=== PATIENT | male | born 1940 | race Caucasian/White ===

== ENCOUNTER 2016-05-03 04:45 | Inpatient (IN) | payer MEDICARE ==
--- NOTE | 2016-05-02 11:43 | HP ---
DATE OF CLINIC: 04/29/2016 MINH ANGELES : 1940 PLANNED PROCEDURE: Left Total Shoulder Arthroplasty vs. Reverse Shoulder Arthroplasty with Biceps Tenodesis DATE OF SURGERY: May 03, 2016 SURGEON: Jarrell Cassidy M.D. PCP: Dr. Maikol Hickman HISTORY OF PRESENT ILLNESS Minh Angeles is a 76 year old male. * Medication list reviewed with patient allergy list reviewed with patient. The patient is a 76-year-old male who comes in today regarding persistent left shoulder pain due to osteoarthritis. At the last appointment the patient was diagnosed with a severe left shoulder osteoarthritis and he had a CT arthrogram to evaluate both the bony anatomy as well as status of his rotator cuff. He has a hx of a left open shoulder rotator cuff surgery. The patient has one kidney but his BUN/Cr have remained closed to 2. He has an established patient of Dr. Griffin who has had knee replacement as well is a right shoulder hemicap hemiarthroplasty (Tornier humeral head resurfacing implant). The patient has been happy with this despite subscap weakness. 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 He has had shoulder pain on this left side for quite some time. He had a failed open rotator cuff surgery back in 1988. He states that at that time he did not find they did not find a rotator cuff tear. The patient has severe right thumb CMC joint osteoarthritis. Dr. Griffin performed a total knee replacement prior to his rotator cuff repair. He states that he has not responded to steroids in the past and with like to talk about potentially moving forward with a left total shoulder replacement and would like to review CT scan images with me today. He is familiar with the surgery, but would like to see what the model looks like it would like to see how it is different than what he currently has. After discussion and review of treatment options, both non-operative and surgical, he has elected to proceed with surgery and presents today preoperatively. When I got to shake the patient's right hand he grimaces because of right thumb pain. He states that he has arthritis here. The patient has a number of different allergies. These include morphine, oxycodone and Vicodin. He does occasionally take Tylenol #3 to help with his pain and discomfort. He does not like taking Tylenol #3. He would like to know if he could take Darvocet. PAST MEDICAL/SURGICAL HISTORY Reported: Shoulder Arthroscopy Left shoulder Right shoulder. Surgical / Procedural: Surgical / procedural history 08/20/08 Left Open rc repair 08/20/08 by 02/25/2008 Right Shoulder hemiarthroplasty By 02/25/08 [facility] By and prior surgery. Total Right Knee Replacement 2004. ALLERGIES * Morphine * Oxycodone * Vicodin REVIEW OF SYSTEMS Systemic: No fever and no recent weight change. Cardiovascular: No chest pain or discomfort and no palpitations. Pulmonary: No cough and no wheezing. Gastrointestinal: No nausea, no vomiting, no abdominal pain, and no diarrhea. Hematologic: No easy bleeding (no blood clots). Neurological: No motor disturbances and no sensory disturbances. Skin: No skin lesions and no rash. PHYSICAL FINDINGS * Vitals taken 04/29/2016 10:28 am BP-Sitting R 121/77 mmHg 100 - 120/60 - 80 BP Cuff Size Regular Pulse Rate-Sitting 74 bpm 50 - 100 Pulse Rhythm Regular Temp-Oral 97.8 F 96 - 101 Height 71 in 64 - 74 Weight 231 lbs 121 - 205 Body Mass Index 32.2 kg/m2 Body Surface Area 2.24 m2 Pain Level 5 General Appearance: * Well developed. * In no acute distress. Eyes: General/bilateral: Extraocular Movements: * Normal. Lungs: * Clear to auscultation. * No wheezing was heard. * No rales/crackles were heard. Cardiovascular: Heart Rate and Rhythm: * Heart rate was normal. * Heart rhythm regular. Abdomen: Palpation: * Abdominal non-tender. Neurological: * Oriented to time, place, and person. Motor: * Dominant Hand = Right Hand. * Dominant Hand = Left Hand. I asked the patient to elevate both shoulders with his right and left shoulders. He continues to have limited motion on the left side compared to the right. On the right side he has a well-healed deltopectoral incision that is somewhat more vertical over the anterior aspect of the right shoulder. On the left side he has an anterior lateral incision from what I assume is a previous open shoulder surgery. Compared to the last appointment at the end of December he continues to have exquisite right-hand first thumb CMC pain. I was able to document Dr. Griffin's previous right shoulder surgeries. He did a right shoulder resurfacing hemiarthroplasty and a right carpal tunnel release with a Tornier 52 x 19 resurfacing humeral head performed on February 25, 2008, roughly 8 years ago. The patient had a second surgery on his right shoulder about six months later on, August 20, 2008 which was an open her of a right shoulder subscapularis tendon. This occurred when he was therapy. The patient would like to discuss with me possible options including a possible left total shoulder. PHYSICAL FINDINGS RIGHT EXTREMITY Hand well-healed carpal tunnel incision Tender to touch over the 1st CMC joint Shoulder General Appearance: right shoulder deltopectoral incision that is well-healed, no bruising, no swelling, no gross deformity AROM Forward Flexion: 150 degrees ABD: 110 degrees IR: Highest posterior anatomy reached with thumb: L4 PROM Forward Flexion: 160 degrees ABD: 120 degrees ER (0): 60 degrees Strength (0-5/5) Deltoid: 5/5 Triceps: 5/5 Biceps: 5/5 EPL,Finger Flexors,Finger Extensors,Wrist Flexors, Wrist Extensors,Intrinsics,Tactical/Mobile Watch Officer: 5/5 Rotator cuff Supraspinatus: 4/5 (negative empty can test) Infraspinatus: 5/5 (no pain with resisted external rotation) Subscapularis: 4/5 (POSITIVE belly press test) Rotator Cuff Exam Superior Escape: Negative Biceps Exam Bicipital Groove Tenderness: Negative Muscle Deformity (Angel Luis): Not present AC Exam AC Tenderness: Not tender AC Deformity: Negative Instability Generalized Laxity(thumb to forearm, hyperextension of elbows and knees, hypermobility of multiple joints): Not present, no signs of instability present Other Atrophy/Asymmetry: Normal Scapular Winging: Negative Medial Scapular Tenderness: Negative Trapezius Pain: Negative C-Spine Cervical Motion: Normal Cervical Tenderness: None Vascular Exam Radial Pulse: 2+ Sensation Gross sensation to light touch in the distribution of Median, Ulnar, Axillary, and Radial nerves present PHYSICAL FINDINGS LEFT EXTREMITY Shoulder General Appearance: left shoulder anterolateral incision that is well-healed, no bruising, no swelling, no gross deformity AROM Forward Flexion: 90 degrees (crepitus appreciated) ABD: 70 degrees (crepitus) IR: Highest posterior anatomy reached with thumb: L5 PROM Forward Flexion: 110 degrees ABD: 100 degrees ER (0): 20 degrees Strength (0-5/5) Deltoid: 5/5 Triceps: 5/5 Biceps: 5/5 EPL,Finger Flexors,Finger Extensors,Wrist Flexors, Wrist Extensors,Intrinsics,Tactical/Mobile Watch Officer: 5/5 Rotator cuff Supraspinatus: 5/5 (negative empty can test) Infraspinatus: 5/5 (no pain with resisted external rotation) Subscapularis: 5/5 (Negative belly press test) Rotator Cuff Exam Superior Escape: Negative Biceps Exam Bicipital Groove Tenderness: Tender to touch Muscle Deformity (Angel Luis): Not present AC Exam AC Tenderness: Not tender AC Deformity: Negative Instability Generalized Laxity(thumb to forearm,hyperextension of elbows and knees, hypermobility of multiple joints): Not present, no signs of instability present Other Atrophy/Asymmetry: Normal Scapular Winging: Negative Medial Scapular Tenderness: Negative Trapezius Pain: Negative Vascular Exam Radial Pulse: 2+ Sensation Gross sensation to light touch in the distribution of Median, Ulnar, Axillary, and Radial nerves present TESTS * Test: MRSA SCREEN Report Date: 04/29/2016 MRSA SCREEN NEGATIVE * Test: MSSA SCREEN Report Date: 04/29/2016 MSSA SCREEN POSITIVE FOR STAPHYLOCOCCUS AUREUS Abnormal PREVIOUS TESTS * Test: CBC NO DIFF Report Date: 04/28/2016 WBC 9.0 10*3/mL MCV 85.8 fL RBC 5.43 10*6/uL MCH 28.2 pg MCHC 32.8 g/dL Low RDW 12.9 % PLATELET COUNT 234 10*3/mL HCT 46.6 % HGB 15.3 g/L * Test: PROTHROMBIN TIME Report Date: 04/28/2016 PROTIME 10.0 s INR 0.95 * Test: URINALYSIS WITH MICROSCOPIC Report Date: 04/28/2016 EPITHELIAL CELL 0-1 WBC 0-1 GLUCOSE 3+ BACTERIA RARE PH,URINE 6.0 SPEC. GRAVITY 1.020 KETONE NEGATIVE NITRITE NEGATIVE RBC 1-3 BLOOD TRACE BILIRUBIN NEGATIVE APPEARANCE CLEAR PROTEIN NEGATIVE COLOR LIGHT YELLOW LEUK ESTERASE NEGATIVE UROBILINOGEN NORMAL * Test: BASIC METABOLIC PROFILE Report Date: 04/28/2016 BUN 39 mg/dL High BUN/CREAT RATIO 20 CALCIUM 9.2 mg/dL GLUCOSE 282 mg/dL High CREATININE 2.0 mg/dL High SODIUM 135 meq/L POTASSIUM 4.6 meq/L CHLORIDE 101 meq/L CARBON DIOXIDE 25 meq/L ANION GAP 14 meq/L GFR 33 Low IMAGING 2.9.2017--CXR: No acute cardiopulmonary abnormalities. A CT arthrogram performed on March 31, 2016 was reviewed. The patient has some posterior wear on his axial images, however I do not feel that he has enough wear to warrant a reverse shoulder. He has no signs of full thickness rotator cuff tear. There is no extravasation of the dye from his imaging, so I think and anatomic shoulder could be performed along with a pegged glenoid implant. X-rays of the patient's shoulder performed on March 17, 2016 show primary osteoarthritis of the left shoulder with a small inferior humeral osteophyte as well as loss of joint space consistent with osteoarthritis. The patient's acromiohumeral distance is maintained. The patient has some suggestion of focal calcific tendinitis. On the axillary view the patient has central to posterior wear of the glenoid. ASSESSMENT Jarrell Cassidy MD made the following assessments * Osteoarthritis of shoulder -left * Complete tear of right rotator cuff tendon (subscapularis repair and hemiarthroplasty--tornier resurfacing 02/2008 by [facility]) PLAN Jarrell Cassidy MD ordered the following therapy * Shoulder arthroplasty TSA vs. RSA with biceps tenodesis -left THERAPY * Patient fall risk screen negative. * Patient eligible for fall risk assessment. * Patient received fall risk assessment. SURGICAL CONSENT We have discussed surgical options including left total shoulder replacement vs reverse shoulder replacement with biceps tenodesis and non-operative management. The patient is a 76 yr old male with a chief complaint of left shoulder osteoarthritis. Despite having a history of a rotator cuff repair, his rotator cuff does appear be intact on his pre-op CTA. The patient has shoulder pain, decreased ROM and strength, not responding to injections, therapy, and non-operative measures. He has had a right shoulder hemiarthroplasty and has done well from this except for problems post-op with his subscap (post-op subscap repear repair necessary). . Because of those findings and failure of conservative non-operative treatment, after a lengthy discussion of the risks and benefits she/he elected to proceed with the above mentioned surgery. The patient understood that the risks of infection, blood loss, neurovascular injury, anesthetic risk, risk of instability, stiffness and post-operative pain. I explained to the patient that I will plan on moving forward with a left TSA. If his rotator cuff has a problem, however, I will plan on switching to a RSA. I showed him both models and explained the differences between the implants. I then showed him my patient education powerpoint presentation as I reviewed with him the risks and benefits of surgery. I explained that a total shoulder replacement refers to the resurfacing of the ball (humeral) side of the joint with a metal prosthesis that has a cylindrical joint surface and a stem used to fix it on the inside of the arm bone (humerus) and a plastic socket fixed to the glenoid part of the shoulder blade (scapula). This procedure is the standard approach to the management of arthritis of the shoulder joint. Because it resurfaces both the ball and the socket sides of the joint, it provides the most assured approach to restoring comfort and function to the shoulder. We can perform this shoulder surgery by operating through the delto-pectoral interval through an incision in the anterior aspect of the shoulder. Commonly, we performed a tenodesis of the long head of the biceps and a release (and repair) of the subscapularis tendon from the humerus. The long head of the biceps is sutured to the pectoral major tendon, and the subscapularis tendon is repaired back tot he bone at the conclusion of the surgery. After a release of the subscapularis, the capsule, which is usually tight and contracted, limiting motion of the shoulder, is released. The arthritic part of the ball is removed with care to preserve the rotator cuff. The bone spurs are removed from around the humerus to avoid unwanted contact with the scapula. We then shape the bone of the socket area (glenoid) to receive the polyethylene glenoid prosthesis. This is fixed in place with a self-locking mechanism coupled with a small amount of bone cement (polymethylmethacrylate). The stem of the metal humeral component is then press-fit into the canal inside the humerus using the patient's own bone. The subscapularis is then repaired to the humerus using sutures. The [id number] of the shoulder is then evaluated and stability is then examined. The incision is then washed and closed. Pendulum exercises will be taught to the patient the day after surgery. Patients are usually discharged from the hospital on the second day after surgery, as long as they are comfortable on oral pain medication have met our goals for their ilobv-ie-slvdea, and are able to walk with good balance and can care for their daily needs. In the past, there has been a major concern about wear of the glenoid socket component or about its loosening. While these concerns remain to a degree, it appears that our current methods of socket preparation and current prosthesis designs have substantially reduced these risks. Shoulder replacement surgery usually results in a substantial improvement in the comfort and function of an arthritic shoulder, but the results cannot be expected to match the condition of a normal joint. The patient was counseled in detail regarding the diagnosis, treatment options available, prognosis of each treatment option and the potential risks and complications. The risks of surgery include, but are not limited to, anesthetic , neurovascular complications, pulmonary embolism, deep vein thrombosis, wound dehiscence, failure of any or all of the discussed procedures, infection of the joint or surrounding soft tissue, need for revision surgery, chronic pain, limitations in activities of daily living, inability to return to work, and loss of normal range of motion or functional use of the extremity. There is the possibility of failure over time that may require additional operative or non-operative treatment. The patient acknowledged that there are a number of perioperative risks not mentioned here and would still like to proceed. The patient is aware of and understands these risks, and wishes to proceed with the proposed surgical procedure and other procedures as indicated at the time of surgery. The patient has seen his PCP for a preoperative medical risk assessment. Due to the fact that he only has one kidney, he is a higher risk for renal insufficiency post-op. He understands this and is ready to proceed with surgery. The preoperative instructions were reviewed with the patient and all questions were answered. CARE TEAM Maikol Hickman MD [facility] BLP/sg
[2016-05-03] MEDS ORDERED: CEFAZOLIN SODIUM 2 GRAM PREMIX 100 ML IV PRN (05:30)
[2016-05-03] MEDS ORDERED: LACTATED RINGERS 1,000 ML ONE (05:35)
[2016-05-03] MEDS ORDERED: IV START KIT ONE (05:35)
[2016-05-03] MEDS ORDERED: CEFAZOLIN SODIUM 2 GRAM PREMIX 100 ML IV ONE (06:07)
[2016-05-03] MEDS ORDERED: SODIUM CHLORIDE 0.9% 1,000 ML ONE (06:14)
[2016-05-03] MEDS ORDERED: ROCURONIUM BROMIDE 10 MG/ML DOSE IV ONE (06:47)
[2016-05-03] MEDS ORDERED: FENTANYL 100 MCG/2 ML VIAL ONE ×2 (06:47→12:05)
[2016-05-03] MEDS ORDERED: MIDAZOLAM HCL 1 MG/ML 2ML VIAL ONE (06:47)
[2016-05-03] MEDS ORDERED: LIDOCAINE 2% (PRES FREE) 5 ML VIAL ONE (06:47)
[2016-05-03] MEDS ORDERED: PROPOFOL 20 ML IV ONE (06:47)
[2016-05-03] MEDS ORDERED: NERVE BLOCK PROCEDURAL TRAY 1 EACH ONE ×2 (06:52→13:38)
[2016-05-03] MEDS ORDERED: ROPIVACAINE 0.5% 30 ML VIAL ONE ×2 (06:52→13:38)
[2016-05-03] MEDS ORDERED: EPINEPHRINE 1 MG/ML 1ML AMP ONE (06:57)
[2016-05-03] MEDS ORDERED: METHYLENE BLUE 1% 1ML VIAL ONE (06:57)
[2016-05-03] MEDS ORDERED: SODIUM CHLORIDE 0.9% 100 ML ONE (06:57)
[2016-05-03] MEDS ORDERED: LUBRICANT EYE OINTMENT (PF) 10 APPLIC TUBE ONE (07:45)
[2016-05-03] MEDS ORDERED: EPHEDRINE SULFATE UD SYR 25 MG 25 MG/5 ML SYRINGE IV ONE (08:21)
[2016-05-03] MEDS ORDERED: PROMETHAZINE HCL 25 MG/ML VIAL IM PRN (09:37)
[2016-05-03] MEDS ORDERED: ATROPINE SULFATE 0.4 MG/1 ML VIAL IV PRN (09:37)
[2016-05-03] MEDS ORDERED: MEPERIDINE 25 MG/ML SYRINGE IV PRN (09:37)
[2016-05-03] MEDS ORDERED: ONDANSETRON 4 MG/2ML 2 ML VIAL IV PRN ×2 (09:37→14:53)
[2016-05-03] MEDS ORDERED: LABETALOL HCL 5 MG/ML 20ML VIAL IV PRN (09:37)
[2016-05-03] MEDS ORDERED: HYDRALAZINE HCL 20 MG/1 ML VIAL IV PRN (09:37)
[2016-05-03] MEDS ORDERED: NALOXONE HCL 0.4 MG/ML VIAL IV PRN (09:37)
[2016-05-03] MEDS ORDERED: LACTATED RINGERS 1,000 ML IV SCH (09:45)
--- NOTE | 2016-05-03 11:12 | RAD ---
SHOULDER-LEFT 1 VIEW HISTORY: Left total shoulder arthroplasty. Interoperative fluoroscopy. COMPARISONS: 03/17/2016 and 03/31/2016. FINDINGS: 2 overhead fluoroscopic images are provided for review. These images demonstrate hardware placement during left total shoulder arthroplasty. Study is limited with respect to osseous detail given fluoroscopic technique. Fluoroscopy time: 13.3 seconds IMPRESSION: Intraoperative fluoroscopy as above. Please see orthopedist note regarding the procedure for further details.
[2016-05-03] MEDS ORDERED: ON-Q PUMP/ROPIVACAINE 0.2% 450 ML ONE (11:25)
--- NOTE | 2016-05-03 11:37 | PCMBPN ---
Brief Post Op Note: Date of Procedure: 05/03/16 Preoperative Diagnosis: 1. left shoulder osteoarthritis Postoperative Diagnosis: 1. [Same] Procedure: left total shoulder arthroplasty and biceps tenodesis Surgeon: Jarrell Cassidy MD Assist: Cruz VELASQUEZ Anesthesia: GETA, left intrascalene nerve block and catheter for post-op pain control Findings: pt had a thin but intact rotator cuff and a partial tear of the subscapularis. I performed a DJO [place] cemented 50mm glenoid and a [id number] eccentric head with a neutral stem and a 16mm stem Condition: extubated, stable vitals, transferred to pacu Complications: None IV Fluids: [] mLs of LR [] Urine Output: 400 mLs Estimated Blood Loss: 400 mLs Tourniquet Time: [N/A] Specimens: [N/A] Implants: Please see above Drains: [N/A] PLAN: NWB on the LUE. Sling at all times. IV Dilaudid for pain control. Darvocet. Ancef x 24 hours post-op.
[2016-05-03] MEDS: ON-Q PUMP/ROPIVACAINE 0.2% 450 ML in PREMIX BAG 1 EACH NB PRN (12:00)
[2016-05-03] MEDS ORDERED: HYDROMORPHONE HCL 1 MG/ML SYRINGE ONE ×2 (12:07→12:56)
[2016-05-03] MEDS: FENTANYL 100 MCG/2 ML VIAL IV PRN ×2 (12:09→12:17)
[2016-05-03] MEDS: HYDROMORPHONE HCL 1 MG/ML SYRINGE IV PRN ×5 (12:25→23:32)
--- NOTE | 2016-05-03 12:26 | RAD ---
Clinical Indication: Postop left TSA. Comparison: Films dating back to 03/17/2016. Findings: 2 views of the left shoulder. Bones: No fracture or dislocation. Hardware is intact without signs of failure or loosening. High density material is noted on scapular Y view projecting along the posterior soft tissues. Findings could relate to overlying bandaging versus material within the soft tissues. Joints: Unremarkable. Soft tissue: Overlying bandages limit assessment. Limited evaluation of the left hemithorax: Unremarkable. Impression: Satisfactory postoperative exam. Other findings as above.
[2016-05-03] MEDS ORDERED: MEPERIDINE 25 MG/ML SYRINGE ONE (13:24)
[2016-05-03] MEDS ORDERED: MIDAZOLAM HCL 5 MG/5 ML VIAL ONE (13:44)
[2016-05-03] MEDS ORDERED: DIPHENHYDRAMINE HCL 50 MG/1 ML VIAL IV PRN (14:53)
[2016-05-03] MEDS ORDERED: BISACODYL 10 MG SUP PR PRN (14:53)
[2016-05-03] MEDS ORDERED: MAGNESIUM HYDROXIDE 30 ML UDCUP PO PRN (14:53)
[2016-05-03] MEDS ORDERED: PUMP TUBING ONE (16:46)
[2016-05-03] MEDS: LACTATED RINGERS 1,000 ML IV SCH (17:02)
[2016-05-03] MEDS: CEFAZOLIN SODIUM 2 GRAM DUPLEX 2 G in Premix (D5W) 50 ml 1 EACH IV SCH ×2 (17:03→23:32)
[2016-05-03 18:09] VITALS: BMI 32.5
[2016-05-03] MEDS ORDERED: BLISTEX LIPSTICK 1 EACH TP ONE (19:05)
[2016-05-03] MEDS ORDERED: BLISTEX LIPSTICK 1 EACH TP PRN (19:06)
[2016-05-03] MEDS ORDERED: INSULIN HUMAN NPH 70/REG 30 100 UNITS/1 ML UNIT (D0SE) SUB-Q ONE (21:12)
[2016-05-03] MEDS: DOCUSATE SODIUM 100 MG CAPSULE PO SCH (21:15)
[2016-05-03] MEDS: INSULIN HUMAN NPH 70/REG 30 100 UNITS/1 ML UNIT (D0SE) SUB-Q SCH (21:50)
[2016-05-04] MEDS: LACTATED RINGERS 1,000 ML IV SCH ×3 (01:53→19:07)
[2016-05-04] MEDS: HYDROMORPHONE HCL 1 MG/ML SYRINGE IV PRN ×7 (02:01→17:48)
[2016-05-04] MEDS: HYDROMORPHONE HCL 2 MG TABLET PO PRN ×4 (03:58→20:28)
[2016-05-04] MEDS: ACETAMINOPHEN 500 MG TABLET PO PRN ×2 (05:53→20:28)
[2016-05-04 06:30] LABS: HEMATOCRIT 36.6 % (32.0-52.0); MEAN CELL VOLUME 86.3 fl (80.0-94.0); MEAN CORPUSCULAR HEMOGLOBIN 28.3 pg (27.0-31.0); MEAN CORPUSCULAR HGB CONC 32.8 g/dl (33.0-37.0)
--- NOTE | 2016-05-04 06:42 | CONS ---
Nelson Angeles DATE: 05/03/2016 ATTENDING PHYSICIAN: Dr. Jarrell Cassidy. PRIMARY CARE PHYSICIAN: Dr. Musa in [place]. CONSULTING PHYSICIAN: Teja Houston M.D. REASON CONSULTATION: Medical management in perioperative period. HISTORY OF PRESENT ILLNESS: Nelson is a 76-year-old male with underlying history of diabetes and a history of renal cancer status post right sided nephrectomy. Earlier today he underwent a left total shoulder arthroplasty with biceps tendonesis by Dr. Cassidy, please see his notes for details. The surgery was apparently uncomplicated and successful. I am seeing him in the postoperative period. REVIEW OF SYSTEM: Preoperatively he has had no recent headache, visual disturbance, difficulty swallowing, chest pain, shortness of breath, nausea, vomiting, diarrhea, extremity weakness, numbness, tingling, or swelling. No recent fevers or chills. Likewise, postoperative review of systems is negative. He has good pain control and no other concerning symptoms as noted above. PAST MEDICAL HISTORY: 1. Diabetes mellitus type 2. He does have peripheral neuropathy with this as well as nephropathy. 2. History of renal cell carcinoma status post right sided nephrectomy in 2014. 3. Chronic kidney disease stage III. 4. Hypertension. 5. Hyperlipidemia. 6. Benign prostatic hypertrophy. PAST SURGICAL HISTORY: 1. Right sided nephrectomy in 2014 as noted above. 2. Carpal tunnel release in 2007. 3. Right shoulder hemiarthroplasty in 2007. 4. Left shoulder rotator cuff repair in 2008. 5. Right total knee arthroplasty 2004. 6. Exploratory laparotomy in approximately 2000 due to a concern about a pancreas mass that turned out not to be present. ALLERGIES: MORPHINE, OXYCODONE, AND VICODIN. HOME MEDICATIONS: 1. Insulin 70/30, he has a very personalized regimen of 70/30 insulin. He takes anywhere from 1 to 15 units subcutaneously three times daily with meals. 2. Advil 600 mg daily as needed, rarely takes. 3. Proscar 5 mg by mouth daily. 4. Tylenol #4 two tablets by mouth as needed for pain. SOCIAL HISTORY: He is , though he does have a significant other now. Lives alone. No alcohol, tobacco, or drug use. He is retired from the [employer] business. FAMILY HISTORY: Noncontributory. OBJECTIVE: VITAL SIGNS: Temperature 97.7, pulse 85, blood pressure 137/81, respirations 16, O2 sat 96% on 2 liters. GENERAL: This is a well developed, well nourished elderly male appears younger than stated age. He is alert, calm, very talkative in no distress what so ever. HEENT: Benign. NECK: Supple. LUNGS: Clear. HEART: Regular. ABDOMEN: Soft. EXTREMITIES: Surgical dressings clean, dry, and intact. He is neurovascularly intact. There is no edema. PREOPERATIVE LABS: Performed 04/28/2016 CBC with a white count of 9.0, hemoglobin 15.3, hematocrit 46.6, platelets of 234. INR of 0.95. Chemistry panel, sodium of 135, potassium 4.6, chloride 101, carbon dioxide 25, BUN is 38, creatinine 2.0, glucose of 282. Urinalysis with 3+ glucose, negative nitrites, negative leukocyte esterase. Nasal swab negative methicillin resistant Staphylococcus aureus, positive methicillin sensitive Staphylococcus aureus. ASSESSMENT: 1. Postoperative day 0 status post left total shoulder arthroplasty with biceps tendonesis, postoperative care is per Dr. Cassidy. 2. Diabetes mellitus type 2 appears to be relatively stable. I will allow the patient to use his own regimen of 70/30 as long as he remains stable with that. We will consider adjusting it as necessary. 3. Chronic kidney disease stage III. Patient's preoperative creatinine is 2.0, will hold his NSAID's and follow closely. Supportive care. Will avoid all nephrotoxic agents. 4. Hypertension appears to be stable on no medications. Will follow. 5. Deep venous thrombosis will be with aspirin as per orthopedic protocol. Further care as dictated by clinical course. JOB: [id number] CC: Dr[facility] Musa at [facility]
[2016-05-04] MEDS: DOCUSATE SODIUM 100 MG CAPSULE PO SCH ×2 (08:42→20:28)
[2016-05-04] MEDS: ASPIRIN (ENTERIC COATED) 325 MG TABLET.EC PO SCH (08:42)
[2016-05-04] MEDS: MULTIVITAMINS 1 TAB TABLET PO SCH (08:43)
--- NOTE | 2016-05-04 09:08 | PDOC43 ---
- Subjective Subjective: Denies Pain Tolerable (Pt having more pain this morning. Using oral and IV dialudid for pain control), Denies Chest Pain, Denies Shortness of Breath , Denies Nausea, Denies Vomiting, Denies Fever - Objective Vital Signs Temperature 98.1 F 05/04/16 07:28 Pulse Rate 82 05/04/16 07:28 Respiratory Rate 16 05/04/16 07:28 Blood Pressure 151/77 05/04/16 07:28 O2 Saturation by Pulse Oximetry 93 05/04/16 07:28 Oxygen Delivery Method Nasal Cannula Oxygen Flow Rate 2 Laboratory 05/04/16 06:00 05/04/16 06:00 05/04/16 05/03/16 05/03/16 06:00 21:03 11:58 RBC 4.24 L MCHC 32.8 L Estimated GFR 42 L POC Capillary Glucose 323 H 160 H Calcium 8.0 L Active Medication Orders Category Date Time Status Acetaminophen [Tylenol] Med 05/03/16 14:53 Active 500 - 1,000 mg PO Q6H PRN Aspirin (Enteric Coated) [Ecotrin] Med 05/04/16 09:00 Active 325 mg PO DAILY Bisacodyl [Dulcolax] Med 05/03/16 14:53 Active 10 mg [place] DAILY PRN Diphenhydramine HCl [Benadryl] Med 05/03/16 14:53 Active 25 - 50 mg IV Q6H PRN Docusate Sodium [Colace] Med 05/03/16 21:00 Active 100 mg PO BID Hydromorphone HCl [Dilaudid] Med 05/03/16 14:53 Active 0.5 - 2 mg IV Q2H PRN Hydromorphone [Dilaudid] Med 05/03/16 14:53 Active 2 mg PO Q4H PRN Insulin Human NPH 70/30 Dose [Novolin/Humulin 70/30 Med 05/03/16 21:00 Active Dose] 1 - 15 units SUB-Q TID Lactated Ringers 1,000 ml Med 05/03/16 14:53 Active IV 125 mls/hr Lip Sandgap [Blistex] Med 05/03/16 19:06 Active 1 each TP PRN PRN Magnesium Hydroxide [Milk of Magnesia] Med 05/03/16 14:53 Active 30 ml PO DAILY PRN Multivitamins [One-A-Day] Med 05/04/16 09:00 Active 1 tab PO DAILY On-Q Pump/Ropivacaine 0.2% 450 ml Med 05/03/16 09:37 Active Premix Bag [Premix Fluid] 1 each NB Q50H Ondansetron 4 mg/2ml Vial [Zofran] Med 05/03/16 14:53 Active 4 - 6 mg IV Q6H PRN Sodium Chloride 0.9% Flush [Normal Saline 10ml Flush] Med 05/03/16 14:53 Active 10 - 50 ml IV PRN PRN Tramadol HCl [Ultram] Med 05/04/16 11:43 Active 50 mg PO TID PRN Intake and Output 05/02/16 05/03/16 05/04/16 23:59 23:59 23:59 Intake Total 3375 1851 Output Total 1500 1750 Balance 1875 101 General: Afebrile - Left Upper Extremity Incision: Dressing Clean/Dry/Intact Motor: Extensor Pollicis Longus: 4/5, Finger Flexors: 4/5, Finger Extensors: 4/5 , Wrist Flexors: 4/5, Wrist Extensors: 4/5, Intrinsics: 4/5 Gross Sensation to Light Touch: Present: Median Nerve, Ulnar Nerve, Radial Nerve Capillary Refill: < 3 Seconds - Problems (1) Status post total replacement of left shoulder Status: Acute - Disposition POD#1 s/p left TSA and biceps tendodeis Pt is NWB on the LUE. Sling is in place. Pain control is an issue and will leave nerve block in and continue with oral and IV dilaudid ASA for DVT prophylaxis and continue with Ancef for 24 hours post-op.
[2016-05-04] MEDS: INSULIN HUMAN NPH 70/REG 30 100 UNITS/1 ML UNIT (D0SE) SUB-Q SCH ×4 (09:12→19:22)
[2016-05-04] MEDS ORDERED: INSULIN HUMAN NPH 70/REG 30 100 UNITS/1 ML UNIT (D0SE) SUB-Q ONE (12:34)
--- NOTE | 2016-05-04 12:45 | PDOC43 ---
- Subjective Chief Complaint: S/P TSA Subjective: Reports Tolerating Diet Well, Reports Adequate Oral Intake, Denies Shortness of Breath, Denies Cough, Denies Chest Pain, Denies Abdominal Pain, Denies Nausea, Denies Vomiting, Denies Fever, Denies Chills - Objective Vital Signs Temperature 98.3 F 05/04/16 11:36 Pulse Rate 81 05/04/16 11:36 Respiratory Rate 16 05/04/16 11:36 Blood Pressure 145/77 05/04/16 11:36 O2 Saturation by Pulse Oximetry 94 05/04/16 11:37 Oxygen Delivery Method Room Air Oxygen Flow Rate 0 Intake and Output 05/03/16 05/04/16 05/05/16 06:59 06:59 06:59 Intake Total 5226 Output Total 3250 Balance 1976 General: Alert, Oriented x3, Cooperative, No Acute Distress HEENT: Atraumatic Lungs: Clear to Auscultation Bilaterally Cardiovascular: Regular Rate and Rhythm Abdomen: Soft, Normal Bowel Sounds, Non-Distended, No Tenderness Extremities: Normal Pulses, No Edema Laboratory 05/04/16 06:00 05/04/16 06:00 Current Medications: Current meds reviewed in EMR. - Problems: Assessment/Plan (1) Status post total replacement of left shoulder Status: AcuteAssessment/Plan: Doing well. Post-op as per ortho. ASA for DVT prophylaxis as per ortho protocol. (2) CKD (chronic kidney disease), stage III Status: ChronicAssessment/Plan: Cr down to 1.6 from 2.0 pre-op. Presumed baseline. Supportive care and avoid nephrotoxic agents. (3) Single kidney Status: ChronicAssessment/Plan: S/P R nephrectomy for RCCA several years ago. (4) DM2 (diabetes mellitus, type 2) Qualifiers: Diabetes mellitus complication status: with unspecified complications Status: ChronicAssessment/Plan: Stable on pt's usual regimen of 70/30. (5) HTN (hypertension) Qualifiers: Hypertension type: essential hypertension Qualifier Code: (I10) Essential (primary) hypertension Status: ChronicAssessment/Plan: Stable. (6) BPH (benign prostatic hyperplasia) Qualifiers: Prostatic enlargement morphology: unspecified morphology Lower urinary tract symptom presence: presence of symptoms unspecified Qualifier Code: ( N40.0) Benign prostatic hyperplasia without lower urinary tract symptoms Status: ChronicAssessment/Plan: Stable. (7) Hyperlipidemia Qualifiers: Hyperlipidemia type: unspecified Qualifier Code: (E78.5) Hyperlipidemia , unspecified Status: ChronicAssessment/Plan: Stable. VTE Prophylaxis: ASA.
[2016-05-04] MEDS: TRAMADOL HCL 50 MG TABLET PO PRN ×2 (12:49→23:01)
[2016-05-04] MEDS ORDERED: INSULIN ASPART (DOSE) 100 UNITS/1 ML ONE (17:43)
[2016-05-04] MEDS: INSULIN ASPART (DOSE) 100 UNITS/1 ML SUB-Q PRN ×2 (17:47→23:01)
[2016-05-05] MEDS: LACTATED RINGERS 1,000 ML IV SCH (01:57)
[2016-05-05] MEDS: HYDROMORPHONE HCL 2 MG TABLET PO PRN ×3 (05:38→16:10)
[2016-05-05] MEDS: ACETAMINOPHEN 500 MG TABLET PO PRN (05:38)
[2016-05-05 06:40] LABS: HEMATOCRIT 37.8 % (32.0-52.0); HEMOGLOBIN 12.3 gm/l (14.0-18.0); MEAN CELL VOLUME 86.5 fl (80.0-94.0); MEAN CORPUSCULAR HEMOGLOBIN 28.1 pg (27.0-31.0); MEAN CORPUSCULAR HGB CONC 32.5 g/dl (33.0-37.0); RED CELL DISTRIBUTION WIDTH 13.1 % (11.5-14.5)
[2016-05-05 07:01] LABS: CALCIUM 8.5 mg/dL (8.6-10.3)
[2016-05-05] MEDS: DOCUSATE SODIUM 100 MG CAPSULE PO SCH (08:30)
[2016-05-05] MEDS: ASPIRIN (ENTERIC COATED) 325 MG TABLET.EC PO SCH (08:30)
[2016-05-05] MEDS: MULTIVITAMINS 1 TAB TABLET PO SCH (08:30)
[2016-05-05] MEDS: INSULIN HUMAN NPH 70/REG 30 100 UNITS/1 ML UNIT (D0SE) SUB-Q SCH ×2 (08:39→12:06)
--- NOTE | 2016-05-05 09:30 | OP ---
Neslon MATHEW : 1940 [id number] DATE OF PROCEDURE: May 03, 2016 PREOPERATIVE DIAGNOSIS: Left shoulder osteoarthritis. POSTOPERATIVE DIAGNOSIS: Left shoulder osteoarthritis. PROCEDURE: LEFT TOTAL SHOULDER ARTHROPLASTY AND BICEPS TENODESIS. SURGEON: Jarrell Cassidy M.D. CHIEF OF PARTY: Shi Arroyo ANESTHESIA: General along with a left interscalene nerve block and catheter for postoperative pain control. FINDINGS: The patient had a thin, but intact supraspinatus, a partial tear of the upper subscapularis. I elected to perform a DJO [place] cemented 50 mm glenoid. I used a 50 x 22 mm eccentric humeral head with a PressFit humeral stem which was 16 mm. CONDITION: The patient was extubated with stable vital signs and transferred to the PACU. COMPLICATIONS: None. INTRAVENOUS FLUIDS: 2700 mL of Lactated Ringer's. URINE OUTPUT: 400 mL ESTIMATED BLOOD LOSS: 400 mL SPECIMENS: N/A TOURNIQUET TIME: N/A IMPLANTS: See above. DRAINS: N/A PLAN: The patient will be nonweightbearing on the left upper extremity in a sling at all times. Oral as well as intravenous Dilaudid for pain control since Darvocet is discontinued. Ancef for 24 hours postoperative. Aspirin for DVT prophylaxis. INDICATIONS: The patient is a 76-year-old male with signs and symptoms consistent with left shoulder osteoarthritis. Prior to surgery I spoke to him about the risks and benefits of this procedure which included but are not limited to persistent pain, instability of the shoulder, need for future surgery. Similar to his other side he could develop a rotator cuff tear and need a revision surgery. We spoke about the risks of bleeding, injury to surrounding nerves or blood vessels as well as other possible complications related to anesthesia and the surgery itself. After a lengthy description regarding the risks as well as benefits the patient decided to proceed with surgery. PROCEDURE DESCRIPTION: Prior to taking the patient to the operating room, I signed and updated the History and Physical and confirmed with the patient that there were no changes. I signed the patient's last shoulder with my initials and the word "yes." I reviewed the consent with the patient and we agreed that the left side was the correct side and the proposed procedure matched the consent form. After again reviewing the risks and benefits of surgery, the patient agreed she was ready to proceed. The patient then spoke to the anesthesia team. After reviewing the risks and benefits of a regional block, the patient agreed to have one and a left interscalene block and catheter was placed without difficulty and the patient was ready to enter the OR. At this point the patient was brought from the preoperative area to the operating suite where the patient was placed on the OR bed and was placed asleep without difficulty. The patient was then intubated without difficulty or complications. The patient was then placed in the beach chair position. The hips were flexed to 45 degrees and the knees were flexed to 45 degrees. Plastic goggles were used to cover her eyes and the head gear was placed securing her head to the bed. The patient was positioned so that a safety belt was secured and the patient had a black knee bump under the knees. The patient had bilateral SCDs on each foot for intra-operative DVT prophylaxis. The patient's head was positioned in a neutral position. At this point the bed was turned 45 degrees. The C-arm was brought in and I confirmed that we could obtain a Grashey view. After this was checked, a Betadine scrub, paint and chlorhexidine prep was used to prep the left upper extremity. At this point a final time-out was performed. We confirmed that the patient's correct images were brought up on the view box. This included xrays of the left shoulder and a CT scan demonstrating the version of the glenoid and bony landmarks. In this final time-out we confirmed that the left side was the correct side that our procedure was a left total shoulder arthroplasty with a long head of the biceps tendoesis and antibiotics (2 g of Ancef). Almost ready to start the surgery, the incision was drawn with a sterile marker. I measured a 10cm line starting just proximal and medial to the coracoid process extending to the mid-shaft of the humerus in the delto-pectoral interval. An Ioban was placed above and below the axilla isolating it from the operative field. A #10 blade was now used to incise the skin. Laurier cautery was used to gain good hemostasis through the subcutaneous fat and 2 Gelpi retractors were placed. An [place] was placed proximally. A Schnidt was used to dissect to identify the cephalic vein. It was brought medially as the deltoid laterally was freed up. A Grimm deltoid retractor was then placed. Anterior bursal tissue was removed exposing the long head of the biceps. It was then tenodesed to the upper border of the pec tendon by its insertion on the humerus with a #2 fiberwire. At this point the rotator interval was opened with Laurier cautery. The coracohumeral ligament was not transected. A small, sharp Sruthi was placed into the joint and the anterior capsule was then exposed. A tag suture was then placed in the superior border of the capsule and the superior portion of the subscapularis. There was a small tear here and I thought the subscap was robust enough to still do an anatomic total shoulder. I then used my finger to feel the anterior border of the subscapularis palpating the axillary nerve as well as the axillary artery more medial and inferior. Once this was identified with my traction suture on the upper border of the subscapularis, a thin lesser tuberosity osteotomy was performed exposing the humeral head. With the arm in adduction, and ER the humeral head was dislocated. This was performed with the arm and elbow in adduction and with gentle external rotation which allowed for dislocation of the humeral head. Once the humeral head was dislocated, I used a large rongeur to clean off humeral head osteophytes. I then used the DJO guide to cut the humeral head. Initially this was a thin cut. I took a second cut so that I could have adequate bone. The patient had a large humeral head which I estimated as close to 50 or 54 mm. I thought that a 22 mm thickness would be appropriate. After this humeral head cut was performed I proceeded to remove the osteophytes posteriorly. The patient had a thin anterior supraspinatus as well as subscapularis. I made sure to put sutures in these which will be repaired at the end of the case. Next I used the canal finder and hand reamers and prepared the humerus. The patient had a wide canal requiring a 14mm broach to be left in place. He still did not have a good press fit so I increased the broach size to a 16mm stem. Now with the humerus prepared, I turned my attention to the glenoid. I then palpated the axillary nerve one more time anterior to my subscapularis and capsule. I then placed a blunt posterior [place] retractor posteriorly, a small sharp Hohmann retractor superiorly, and a Cobra anteriorly exposing the glenoid. The anterior labrum was removed and the glenoid was exposed. I then placed a Fukada retractor posteriorly allowing more exposure of the glenoid. Once this was performed, I identified the center of the glenoid and used the plastic glenoid template to estimate my size. I then used the starter drill for my car pilot hole into the center of the glenoid. Next, I used the larger drill for the center peg. Next, I used the correct reamer to ream away the remaining cartilage on the glenoid. With a stable subchondral surface, I drilled the 3 glenoid holes sequentially and then placed a glenoid trial which was flush on the glenoid. We then prepared one batch of medium viscosity cement and cemented in the three pegs. I then waited for the cement to harden and then placed a plastic Yane into the joint protecting the glenoid as I re-dislocated the humerus anteriorly. Back to the humerus, I placed my trial head and trialed the implant. There was good mobility in the joint and no signs of anterior or posterior dislocation. At this point I asked for the humeral implants to be opened. I used a 2.5mm drill bit to prepare bone tunnels for fibertape sutures that would secure my lesser tuberosity osteotomy. Once these 4 bone tunnels were drilled, I assembled the implant together on the back table myself. These fibertapes would be placed around the implant and then through the subscapularis for our repair at the end of the surgey. The joint was then irrigated taking care to look for any loose bodies or loose cement pieces. The humeral implant was then press fit into the humeral canal and a free needle was used to pass the fibertapes posterior to anterior. The lesser tuberosity osteotomy was tied down and then I irrigated the wound. Once this was performed I took the arm through a [id number]. I could easily externally rotate the arm to 30 degrees without putting tension on the subscapularis and could forward flex to 150 degrees. I checked for good hemostasis and then irrigated the wound once again. I then closed the rotator interval with a #2 fiberwire. The deltopectoral interval was closed with non-absorbable Ethibond sutures to margarita the interval for any possible future revision surgeries. This was followed by 0 Vicryl, interrupted 2-0 Vicryl followed by a running Monocryl suture. A DSD was applied. The team confirmed that all needle and sponge counts were correct. The patient was placed in a shoulder immobilizer and awoken without difficulty and transferred to the recovery room. In the recovery room, the patient neurovascularly was grossly intact. The patient will be discharged to the floor. We will give her antibiotics for the next 24 hours. For DVT prophylaxis she will have on SCD's and TEDS on bilateral lower extremities and will encourage the patient to participate in early ambulation. Job [id number] CC: Russel Kinney
[2016-05-05] MEDS: ON-Q PUMP/ROPIVACAINE 0.2% 450 ML in PREMIX BAG 1 EACH NB PRN ×2 (11:00→13:00)
[2016-05-05 11:43] VITALS: BP 162/75
--- NOTE | 2016-05-05 15:10 | PDOC43 ---
- Subjective Subjective: Reports Pain Tolerable (The pain catheter was at 10 this morning. He is able to feel his hand. He had improved pain last night and had improved sleep.), Denies Chest Pain, Denies Nausea - Objective Vital Signs Temperature 97.7 F 05/05/16 11:42 Pulse Rate 76 05/05/16 11:42 Respiratory Rate 17 05/05/16 11:42 Blood Pressure 162/75 05/05/16 11:42 O2 Saturation by Pulse Oximetry 98 05/05/16 11:42 Oxygen Delivery Method Room Air Oxygen Flow Rate 0 Laboratory 05/05/16 06:00 05/05/16 06:00 05/05/16 05/05/16 05/05/16 11:41 08:10 06:00 RBC 4.37 L MCHC 32.5 L Estimated GFR 42 L POC Capillary Glucose 306 H 220 H Calcium 8.5 L 05/04/16 05/04/16 22:26 17:24 RBC MCHC Estimated GFR POC Capillary Glucose 210 H 379 H Calcium Active Medication Orders Category Date Time Status Acetaminophen [Tylenol] Med 05/03/16 14:53 Active 500 - 1,000 mg PO Q6H PRN Aspirin (Enteric Coated) [Ecotrin] Med 05/04/16 09:00 Active 325 mg PO DAILY Bisacodyl [Dulcolax] Med 05/03/16 14:53 Active 10 mg [place] DAILY PRN Diphenhydramine HCl [Benadryl] Med 05/03/16 14:53 Active 25 - 50 mg IV Q6H PRN Docusate Sodium [Colace] Med 05/03/16 21:00 Active 100 mg PO BID Hydromorphone HCl [Dilaudid] Med 05/03/16 14:53 Active 0.5 - 2 mg IV Q2H PRN Hydromorphone [Dilaudid] Med 05/03/16 14:53 Active 2 mg PO Q4H PRN Insulin Aspart (Dose) [Novolog (Dose)] Med 05/04/16 17:33 Hold See Protocol SUB-Q WM/BEDTIME PRN Insulin Human NPH 70/30 Dose [Novolin/Humulin 70/30 Med 05/04/16 17:00 Active Dose] 1 - 15 units SUB-Q TIDWM Lip [place] [Blistex] Med 05/03/16 19:06 Active 1 each TP PRN PRN Magnesium Hydroxide [Milk of Magnesia] Med 05/03/16 14:53 Active 30 ml PO DAILY PRN Multivitamins [One-A-Day] Med 05/04/16 09:00 Active 1 tab PO DAILY On-Q Pump/Ropivacaine 0.2% 450 ml Med 05/03/16 09:37 Active Premix Bag [Premix Fluid] 1 each NB Q50H Ondansetron 4 mg/2ml Vial [Zofran] Med 05/03/16 14:53 Active 4 - 6 mg IV Q6H PRN Sodium Chloride 0.9% Flush [Normal Saline 10ml Flush] Med 05/03/16 14:53 Active 10 - 50 ml IV PRN PRN Tramadol HCl [Ultram] Med 05/04/16 11:43 Active 50 mg PO TID PRN Intake and Output 05/03/16 05/04/16 05/05/16 23:59 23:59 23:59 Intake Total 3375 2991 320 Output Total 1500 3325 1150 Balance 1875 -334 -830 General: No Acute Distress Lungs: Normal Air Movement Abdomen: No Tenderness Skin: Warm Neurological: Alert Psych/Mental Status: Normal Mood, Other (He describes noise through the night like "pianos being built" in the adjacent room through the night, but the room is empty with no patients.) - Left Upper Extremity Incision: Dressing Clean/Dry/Intact Motor: Extensor Pollicis Longus: 5/5, Finger Flexors: 5/5, Finger Extensors: 5/5 , Wrist Flexors: 5/5, Wrist Extensors: 5/5, Intrinsics: 5/5, Biceps: 5/5, Triceps: 5/5 Gross Sensation to Light Touch: Present: Median Nerve, Ulnar Nerve, Radial Nerve Capillary Refill: < 3 Seconds - Disposition POD#2 s/p left TSA and biceps tendodeis Pt is NWB on the LUE. Sling is in place. Pain control is improved on po Dilaudid. ASA for DVT prophylaxis. He may D/C home later today after weaning pain catheter and watching his pain. His serum glucose is elevated. He will continue his insulin sliding scale at home.
--- NOTE | 2016-06-06 08:33 | PDOC5 ---
ADMIT DATE: 05/03/16 DISCHARGE DATE: 05.05.2016 ADMISSION DIAGNOSES: left shoulder osteoarthritis and biceps tenodesis PROCEDURES PERFORMED THIS HOSPITALIZATION: left shoulder total shoulder arthroplasty and biceps tenodesis SURGEON:Jarrell Cassidy MD CONSULTATIONS: None BRIEF HISTORY:This is a 76 year old male with a left shoulder osteoarthritis who elected to proceed with a left total shoulder arthroplasty. BRIEF HOSPITAL COURSE: The patient is a 76 yr old male who has an arthritic left shoulder. He has had a right sided hemiarthroplasty performed in the past by Dr. Griffin. The patient has failed non-op treatment for his left shoulder and decided to pursue a surgical option. I spoke to the patient about the risks and benefits of non-op and surgical treatment prior to surgery. I spoke to him about the difference with the left total shoulder replacement. I explained to him that the function of it should be about the same or better. The goal is pain relief but that I could not guarrantee how much improved motion he would have. The patient elected to proceed with a left total shoulder replacement on 2. He finished 24 hours of antibiotics and was on a daily aspirin for DVT prophylaxis along with SCDs. He tolderated this well and had a left intrascalene nerve block for post-op pain control. On POD#1 the patient had normal labs but had a fair amount of pain and discomfort. The patient was taking oral and IV dilaudid for pain control with limited improvement. This did improve by 2..2016 but the patient continued to have pain. With the addition of tramadol and oral dilaudid the patient had improvement of his pain. His dressing was changed and he was ready to be discharged to home on POD#2. He will plan to follow-up in one week for a wound check. I reviewed with him his precautions and he said he will wear the sling at all times. - Discharge Diagnosis (1) Status post total replacement of left shoulder Status: Acute - Discharge Plan Disposition: Home Follow-Up: Jarrell Cassidy MD [Staff Physician] - 05/11/16 1:30 pm
== END 2016-05-05 17:00 | disposition home or self-care (01) | DRG 483 ==
LOC: OR 04:45 → MS 15:08
PROVIDERS: ADMIT Orthopaedic Surgery; ATTEND Orthopaedic Surgery
PROC: 0RRK0JZ Replacement of Left Shoulder Joint with Synthetic Substitute, Open Approach (ICD-10-PCS; principal; 2016-05-03)
DX: M19.012 Primary osteoarthritis, left shoulder (principal); M75.22 Bicipital tendinitis, left shoulder; I12.9 Hypertensive chronic kidney disease with stage 1 through stage 4 chronic kidney disease, or unspecified chronic kidney disease; N18.3 Chronic kidney disease, stage 3 (moderate); E78.5 Hyperlipidemia, unspecified; N40.0 Benign prostatic hyperplasia without lower urinary tract symptoms; Z79.4 Long term (current) use of insulin; E11.22 Type 2 diabetes mellitus with diabetic chronic kidney disease